=== PATIENT | male | born 1990 | race Caucasian/White ===

== ENCOUNTER 2024-06-24 20:24 | Emergency (ER) | payer BC, SELFPAY ==
[2024-06-24 20:32] VITALS: BP 125/80
[2024-06-24] MEDS: ZOFRAN ODT (ORALLY DISINTEGRATING) 4 MG PO (20:37)
[2024-06-24 20:46] LABS: % Basophils 0.1 % (0-2); % Eosinophils 0.1 % (0-6); % Immature Granulocytes 0.2 % (0-0.5); % Monocytes 4.4 % (1.7-9.3); % Neutrophils 90.2 % (42.2-75.2); Absolute Lymphocytes 0.4 10^3/uL (1.2-3.4); Absolute Monocytes 0.4 10^3/uL (0.1-0.6); Absolute Neutrophils 7.9 10^3/uL (1.4-6.5); Hematocrit 51.3 % (39.0-52.0); Hemoglobin 17.9 g/dL (13.0-18.0); Mean Corp Hgb Conc. 34.9 g/dL (33.0-37.0); Mean Corpuscular Hgb 30.1 pg (27.0-31.0); Mean Corpuscular Volume 86.4 fL (80.0-94.0); Mean Platelet Volume 10.1 fL (7.4-10.4); Nucleated Red Blood Cells % 0 % (-); Platelet Count 187 10^3/uL (130-400); Red Blood Cell Count 5.94 10^6/uL (4.70-6.10); Red Cell Dist. Width 12.4 % (11.5-14.5); White Blood Cell Count 8.8 10^3/uL (4.8-10.8)
[2024-06-24 20:58] LABS: Potassium 4.4 mmol/L (3.5-5.1)
[2024-06-24 20:59] LABS: ALT (SGPT) 31 U/L (0-50); AST (SGOT) 31 U/L (17-59); Albumin 5.5 g/dl (3.5-5.0); Alkaline Phosphatase 77 U/L (38-126); Blood Urea Nitrogen 16 mg/dl (9-20); Calcium 10.1 mg/dl (8.4-10.2); Carbon Dioxide 24 mmol/L (22-30); Chloride 99 mmol/L (98-107); Glucose 115 mg/dl (70-99); Sodium 136 mmol/L (135-145); Total Bilirubin 1.5 mg/dl (0.2-1.3); Total Protein 8.6 g/dl (6.3-8.2); eGFR > 60.00
[2024-06-24 23:01] VITALS: BMI 25.9
[2024-06-24 23:04] VITALS: BP 131/80
--- NOTE | 2024-06-24 23:16 | ED.GENMED ---
History of Present Illness
General
Chief Complaint: Abdominal Pain
Source: patient
Exam Limitations: none
Time Seen by Provider: 06/24/24 23:12
Nursing documentation reviewed up to this point in time: agreed with
History of Present Illness
History of Present Illness:
PT IS A 33 Y/O M
h/o depression and gerd
here with nausea/vomiting x 20 times that began about 4 pm tonight
he had some low grade temp 100 and sweats while vomiting
his household has same, and 2 kids
no diarrhea, some mild cramping
no cough/cold symptoms,
Past History
Past History
ED Past Medical History: GERD and Psychiatric
ED Past Surgical History: None
Social History
Tobacco: Non-smoker
Alcohol: Occasional
Drug: None
Personal:
Living: with family
Family History
Family History: CAD
Review of Systems
Review of Systems
Allergies reviewed?: Yes
All Other Systems: Not applicable
Phy Exam
Physical Exam
Physical Exam:
GENERAL: Alert , in no apparent distress
EYE: pupils equal and reactive
NECK: Supple
ENT: o/p clr, dry mouth
CARDIAC: Regular rate and rhythm .
LUNGS: Clear breath sounds bilaterally, no acute respiratory distress, no wheezes/rales/rhonchi
ABDOMEN: Soft, no focal abdominal tenderness, no r/g, no cvat, normal bowel sounds
NEUROLOGICAL: Alert and oriented, no focal neuro deficits
SKIN: Warm and dry, skin intact.
MUSCULOSKELETAL: No edema, well perfused.
PSYCH: Normal and appropriate interaction.
Course
Orders/Labs/Results
Orders:
Orders
06/24/24 20:36
Ondansetron Orally Disint [Zofran Odt (Orally Disintegrating)] 4 mg .ROUTE .[facility]
Ondansetron Orally Disint [Zofran Odt (Orally Disintegrating)] 4 mg PO NOW STA
06/24/24 20:39
Complete Blood Count/With Diff Urgent
Comprehensive Metabolic Panel Urgent
Lipase Urgent
Comment: ADD ON
06/24/24 23:13
0.9% Sodium Chloride 1000 ml [Nss] 1,000 ml IV BOLUS
Ondansetron Injectable [Zofran] 4 mg IV NOW STA
06/24/24 23:16
Add On- LAB Urgent
Tests Added?: LIPASE
06/25/24 00:33
Famotidine [Pepcid] 20 mg IV NOW STA
Abnormal Lab Results
06/24/24
20:39
Absolute Neuts (auto) 7.9 H 10^3/uL
(1.4-6.5)
Absolute Lymphs (auto) 0.4 L 10^3/uL
(1.2-3.4)
Neutrophils % 90.2 H %
(42.2-75.2)
Lymphocytes % 5.0 L %
(20.5-51.1)
Glucose 115 H mg/dl
(70-99)
Total Bilirubin 1.5 H mg/dl
(0.2-1.3)
Total Protein 8.6 H g/dl
(6.3-8.2)
Albumin 5.5 H g/dl
(3.5-5.0)
06/24/24 20:39
06/24/24 20:39
Vital Signs
Initial and Last Documented VS:
Initial Vital Signs
Pulse Resp BP Pulse Ox
92 18 125/80 100
06/24/24 20:32 06/24/24 20:32 06/24/24 20:32 06/24/24 20:32
Last Documented Vital Signs
Temp Pulse Resp BP Pulse Ox
37.4 C 74 17 129/81 99
06/24/24 23:04 06/25/24 00:35 06/25/24 00:35 06/25/24 00:35 06/25/24 00:35
MDM/Problems Addressed
Differential Diagnosis Includes:
gastroenteritis, gastritis, viral gi illness
MDM/Problems Addressed:
33 y/o M
gerd
nausea/vomiting today
other family members with same
borderline temp at home 100
no temp here
generalized nauesa nad cramps but no focal pain
dry mouth, nontender abdomen
wbc normal
lytes total bili slightly high 1.5
lipase normal
likely viral
zofran, ivf and will reassess
0100
had some epigastric pain but felt just genearlized achiness
suspect viral gastritis
give pepcid which helped some
pt would like to go home
toelrated ice chips
aware of mild t bili elevation
f/u wiht pcp
*Critical Care Note
Total Time (30-74mins, 75-104mins- exclusive of procedures): Not Applicable
ED Attending Note
-
Portions of this chart may have been created with voice recognition software.� Occasional wrong word or��sound alike� substitutions may have occurred due to the inherent limitations of voice recognition software.
Discharge Plan
Departure
Patient Disposition: Home (Routine Discharge)
Date of Disposition: 06/25/24
Time of Disposition: 01:07
Patient with high blood pressure during this ER visit?: No
Condition: Fair
Covid-19: Not Applicable
Discharge Problem:
Vomiting, Gastritis
Instructions: Nausea and Vomiting, Adult (DC), Gastritis (DC)
Prescriptions:
New
ondansetron 4 mg tablet,disintegrating
4 mg PO Q8H PRN (Reason: nausea and vomiting) 2 Days Qty: 5 0RF
No Action
escitalopram oxalate 5 MG tablet
5 mg PO DAILY
prochlorperazine maleate 10 MG tablet
10 mg PO Q8HPRN PRN (Reason: nausea and vomiting) Qty: 15 0RF
Referrals:
Tatiana Guzman CRNP [Family Provider] - Follow up in 2-3 days
Activity Restrictions/Additional Instructions:
YOU PROBABLY HAVE A VIRUS CAUSING YOUR SYMPTOMS
CONTINUE YOUR ACID REFLUX MEDIATION
USE A BLAND DIET
START WITH ICE CHIPS AND SIPS OF CLEARS AND ADVANCE TOLERATED
YOU CAN TRY ZOFRAN EVERY 8 HOURS NEEDED FOR NAUSEA/VOMITING
RETURN FOR: FEVER, WORSE PAIN, VOMITING BLOOD, BLACK STOOL OR ANY COCNERNS.
Interventions
Interventions:
*Risk Screen - Suicide Last Done: 06/24/24 23:02
*General Assessment Last Done: 06/24/24 23:02
*Neglect/Abuse Screening Last Done: 06/24/24 23:02
*ED COVID-19 Vaccine History Last Done: 06/24/24 23:02
EW-Teqmuk-Hqqchdjcch Assessment Last Done: 06/24/24 23:05
Discharge Date and Time
Print Language: LAO
[2024-06-24] MEDS: NSS 1000 IV (23:20)
[2024-06-24] MEDS: ZOFRAN 4 MG IV (23:21)
[2024-06-24 23:26] LABS: Lipase 122 U/L (23-300)
[2024-06-25 00:35] VITALS: BP 129/81
[2024-06-25] MEDS: PEPCID 20 MG IV (00:40)
== END 2024-06-25 01:20 | disposition home or self-care (01) ==
LOC: EMR 20:24
PROVIDERS: Emergency Medicine; EMERGENCY PHYSICIAN Emergency Medicine; FAMILY PHYSICIAN Nurse Practitioner Adult Health
DX: K29.70 Gastritis, unspecified, without bleeding (principal); K21.9 Gastro-esophageal reflux disease without esophagitis
CPT/HCPCS: 96374; 96375; 96361; 99284; 80053; 83690; 85025